=== PATIENT | male | born 1950 | race Caucasian/White ===

== ENCOUNTER → 2020-11-05 | Day surgery (SDC) | payer OTHER ==
[~2020-11-05] MED LIST: ATORVASTATIN CA20 MG PO; CLEOCIN300 MG PO; GLIMEPIRIDE4 MG PO; JARDIANCE25 MG PO; LEVAQUIN250 MG PO; METFORMIN HCL500 M1 PO; NORCO 5/3251 EACH PO; OLMESARTAN MEDO20 MG PO
[2020-11-05 16:00] LABS: HCT 39.8 % (42.0-52.0); HGB 12.4 g/dl (13.2-18.0); MCH 27.2 pg (25.0-31.0); MCHC 31.2 g/dL (32.0-36.0); MCV 87.3 fL (78.0-100.0); MPV 10.1 fL (6.0-9.5); RBC 4.56 M/uL (4.70-6.00); RDW 14.2 % (11.5-14.0); WBC 8.3 K/uL (4.0-10.5)
[2020-11-05 16:24] LABS: ALBUMIN 3.4 g/dL (3.4-5.0); BILIRUBIN - TOTAL 0.3 mg/dL (0.2-1.0); BUN/CREAT RATIO (CALC) 20.2 RATIO; CREATININE 1.09 mg/dL (0.67-1.17); GLOBULIN (CALCULATION) 4.7 g/dL; POTASSIUM 4.9 mmol/L (3.5-5.1); TOTAL PROTEIN 8.1 g/dL (6.4-8.2)
== END | disposition home or self-care (01) ==
LOC: FAS 15:22
PROVIDERS: Legal Medicine
DX: T81.31XA Disruption of external operation (surgical) wound, not elsewhere classified, initial encounter (principal); L76.34 Postprocedural seroma of skin and subcutaneous tissue following other procedure; Z96.642 Presence of left artificial hip joint; Z79.899 Other long term (current) drug therapy; Z20.822 Contact with and (suspected) exposure to COVID-19
CPT/HCPCS: 36415; 73501; 80053; 87070; 87075; 87205; 93005; J0690; J2250; J2405; J2704; J2795; J3010; J3260; J7120; U0002